=== PATIENT | female | born 1935 | race Caucasian/White ===

== ENCOUNTER → 2017-07-07 | Outpatient (CLI) | payer OTHER ==
[~2017-07-07] MED LIST: BETAPACE80 MG PO; CALCIUM 500+D1 EAC2 PO; CALCIUM 500+VI1 EACH; CIPRO500 MG PO; COUMADIN 5 MG TA5 M1 PO; FERROUS FUMARAT89 MG PO; FLORANEX TABLE1 EACH PO; HYDROCHLOROTH12.5 M1; HYDROCODON-ACE1 EAC7 PO; HYDROCODON-ACE1 EACH; IRON256 MG PO; LEVOTHYROXIN0.125 M1 PO; LISINOPRIL-HCT1 EAC1 PO; LISINOPRIL20 MG PO; MULTIVITAMINS1 EAC7 PO; SERTRALINE HCL25 M1 PO; SORINE 80 MG TA80 M1 PO; TRAMADOL 50 MG50 MG PO; XARELTO20 MG PO
== END ==
LOC: M.RAD 16:15
DX: Z12.31 Encounter for screening mammogram for malignant neoplasm of breast (principal)

== ENCOUNTER → 2019-03-25 | Day surgery (SDC) | payer OTHER ==
[~2019-03-25] MED LIST changes: +B12INJ IM; -LEVOTHYROXIN0.125 M1 PO; +NORVASC5 MG PO; +SYNTHROID137 MC1 PO
--- NOTE | ~2019-03-25 | OP ---
[address] [address] OPERATIVE REPORT Name: FLORENTINO ROGER I Room: [facility]#: [id number] Admission: 03/25/19 Attend Phys: Mingo Joe DO Discharge: Date of : 39 Report #: [id number] THIS REPORT FOR: //name// CC: Mingo Sarabia DICTATED BY: Antony Mccormick DO DATE OF SERVICE: 03/25/2019 AGE: An 83-year-old female. PREOPERATIVE DIAGNOSIS: Previous history of colon cancer, vascular access port. POSTOPERATIVE DIAGNOSIS: Previous history of colon cancer, vascular access port. PRIMARY SURGEON: Mingo Joe DO CO-SURGEON: Antony Mccormick DO, PGY3. TECHNICAL ARCHITECT: MS Jennifer3. OPERATION PERFORMED: Removal of Port-A-Cath. ANESTHESIA: General. ESTIMATED BLOOD LOSS: 10. SPECIMEN REMOVED: Port-A-Cath and capsule. COMPLICATIONS: None. DISPOSITION: PACU to home. INDICATIONS FOR PROCEDURE: The patient is a pleasant 83-year-old female who presented to the office with request for Port-A-Cath removal that had been placed 6 years previously by IR for colon cancer, vascular access. The patient is routinely gotten her port flushed every 4-6 weeks. Her daughter had some concerns for leaving it further and wished to have it out. Recommended outpatient Port-A-Cath removal. Full discussion of procedure, alternatives, risks and possible complications discussed include but not limited to bleeding, infection, postoperative pain, scarring and anesthesia risks. The patient voiced understanding of these risks and agreed to proceed with surgery. DESCRIPTION OF PROCEDURE: The patient [place] [address] OPERATIVE REPORT Name: FLORENTINO ROGER Billy Room: [facility]#: [id number] Admission: 03/25/19 Attend Phys: Mingo Joe, DO Discharge: Date of : 39 Report #: [id number] preoperative holding. Fully informed written consent was obtained. Preoperative antibiotics, 2 grams Ancef were given. The patient was subsequently transferred to the operating room suite and placed on the operating table in supine position. At this time, anesthesia induced general anesthesia via endotracheal intubation and this was successful. Arms were tucked at the patient's side. SCDs were placed to bilateral lower extremity calves. Grounding pad was placed in right lateral thigh. All extremities and joints were padded and protected. Safety strap was placed across the patient's lap. The patient was prepped and draped using standard sterile fashion. Time-out was performed prior to onset of procedure. I began by making a horizontal incision in the right chest overlying the previous incisional scar from Port-A-Cath placement. I then dissected down through dermal and subcutaneous tissue to reach the Port-A-Cath capsule. Capsule was entered. The port was expressed through the incision and the tract was clamped with a hemostat and the port and catheter were removed. Direct pressure was held in the neck overlying the internal jugular vein. Once the port was removed, a 2-0 aizoci-rt-lxoid interrupted Vicryl stitch was placed to close the tract. Next, the capsule was excised using electrocautery. Next, a layered closure was then performed using 2-0 interrupted Vicryls in the subcutaneous and deep dermal layers. Skin was closed using a running subcuticular 4-0 Monocryl. Skin was cleansed using wet and dry lap. Sterile dressing applied. Mastisol, Steri-Strips, Tegaderm, 4 x 4s and Medipore tape. The patient tolerated the procedure well and was extubated in the OR, transferred to PACU in stable condition after brief recovery from anesthesia. PLAN: Discharged home. FOLLOWUP: Follow up in the office with Dr. Joe in 1 week. By: [id number] [id number] Joe DO /nt
[2019-03-25 09:33] LABS: HEMATOCRIT 43.4 % (37.0-47.0); HEMOGLOBIN 14.4 gm/dL (12.0-15.0); MCH 32.8 pg (26.0-34.0); MCHC 33.3 g/dL (28.0-37.0); MCV 98.4 fL (80.0-100.0); MPV 9.4 fl. (7.2-11.1); RBC 4.41 mil/uL (4.20-5.00); RDW-CV 14.6 % (10.5-14.5); WBC 5.5 thou/uL (4.0-11.0)
[2019-03-25 09:50] LABS: CALCIUM 9.8 mg/dL (8.5-10.1); CREATININE 1.1 mg/dL (0.6-1.3); POTASSIUM 3.9 mmol/L (3.5-5.1)
[2019-03-25 09:54] LABS: ALBUMIN 3.9 g/dL (3.4-5.0); TOTAL BILIRUBIN 0.6 mg/dL (<0.1-1.0); TOTAL PROTEIN 6.2 g/dL (6.4-8.2)
--- NOTE | 2019-03-26 14:55 | EKG ---
[place] [address] ELECTROCARDIOGRAM REPORT Name: FLORENTINO ROGER I Room: [facility]#: [id number] Admission: 03/25/19 Attend Phys: Mingo Joe DO Discharge: Date of : 39 Report #: [id number] THIS REPORT FOR: //name// [facility] Test Date: 2019-03-25 Test Time: 08:06:12 Pat Name: FLORENTINO ROGER Department: Room: Gender: F Oncology Technician: : 1935 Requested By: Mingo Joe Order Number: [id number] Reading MD: Mateusz Wood Measurements Intervals Triangle Rate: 51 P: 32 MS: 172 QRS: -41 QRSD: 156 T: -6 QT: 482 QTc: 444 Interpretive Statements Sinus rhythm RBBB and LAFB Probable left ventricular hypertrophy Compared to ECG 05/10/2017 18:42:12 No significant changes Electronically Signed On 03-26-2019 14:55:24 CDT by Mateusz Wood [email or web address] <ELECTRONICALLY SIGNED> By: Mateusz Wood MD, [facility] 03/26/19 1455 5 5 Mateusz Wood MD, FACC /EPI
--- NOTE | 2019-03-27 17:06 | PATH ---
[address] [address] PATHOLOGY RPT PROCEDURE Name: JENIFFER ROGER I Room: [facility].#: [id number] Admission: 03/25/19 Date of : 39 Discharge: Report #: [id number] Path Case #: [id number] [facility] Accession Number: [id number] . 01 Material submitted: . body - PORT-A-CATH AND CAPSULE . 01 Clinical history: . Pre-op diagnosis: Malignant neoplasm of colon Post-op diagnosis: Status post colon cancer . 02 Diagnosis: Port-A-Cath and capsule (gross examination only): - Capsular tissue and Port-A-Cath components identified. . (HEATHER:mml; 03/27/2019) QLM 03/27/2019 1208 Local . 02 Electronically signed: . Jordy Diop MD, Pathologist NPI- [id number] . 01 Gross description: . The specimen is received in formalin, labeled "Jeniffer Roger, Port-A-Cath and capsule gross only". Received is a segment of pink-brandt fibromembranous tissue with attached lobulated tissue measuring 1.9 x 1.9 x 0.5 cm. Also received is a purple triangular plastic port measuring 2.8 x 2.4 x 1.5 cm with attached blue tubing measuring 18.7 cm in length by 0.3 cm in diameter. The back of the port is inscribed with "BARD" and "6038". Gross photographs are taken. Sections are not submitted. (CAA; 03/26/2019) QAC/QAC 03/26/2019 1103 Local . 02 Pathologist provided ICD-10: C18.9, Z45.2 . 02 CPT . 723924 Specimen Comment: A courtesy copy of this report has been sent to Specimen Comment: [phone], . Specimen Comment: Report sent to / DR IBRAHIM Performed at: [address], [place] [id number] MD Neo Mejias MD Phone: [phone] Performed at: 02 [facility] [address], [place] [id number] [address] [address] PATHOLOGY RPT PROCEDURE Name: ENRIKE ROGERBROWN Cervantes Room: [facility]#: [id number] Admission: 03/25/19 Date of : 39 Discharge: Report #: [id number] Path Case #: [id number] [facility] Phone: [phone]
== END | disposition home or self-care (01) ==
LOC: M.SUR 07:25
PROVIDERS: Surgery
DX: Z45.2 Encounter for adjustment and management of vascular access device (principal); Z85.038 Personal history of other malignant neoplasm of large intestine; Z79.899 Other long term (current) drug therapy; Z98.890 Other specified postprocedural states